=== PATIENT | female | born 1945 | race Caucasian/White ===

== ENCOUNTER 2024-09-25 09:48 | Emergency (ER) | payer MEDICARE | END 2024-09-25 12:33 | disposition home or self-care (01) | LOC: JP.ED 09:48 | DX: M25.552 Pain in left hip (principal); E78.00 Pure hypercholesterolemia, unspecified; F17.210 Nicotine dependence, cigarettes, uncomplicated; Z88.5 Allergy status to narcotic agent; Z91.041 Radiographic dye allergy status; Z79.899 Other long term (current) drug therapy | CPT/HCPCS: 73502-LT; 73560-LT; 99283 ==